=== PATIENT | female | born 1965 | race Caucasian/White ===

== ENCOUNTER 2017-10-03 12:40 | Observation (INO) | payer OTHER ==
[~2017-10-03] VITALS: Ht 170.2 cm; Wt 72.6 kg
[~2017-10-03 12:40] MED LIST: AMOXICILLIN500 MG PO
[2017-10-03 12:42] VITALS: Ht 170.2 cm; Wt 72.6 kg
[2017-10-03 14:59] LABS: BASOPHIL % 0.5 % (0-2); CALCIUM 8.8 mg/dL (8.5-10.1); CARBON DIOXIDE 27.5 mmol/L (21-32); CHLORIDE SERUM 101 mmol/L (98-107); CREATININE SERUM 0.8 mg/dL (0.6-1.0); GFR1 > 60 mL/min; GLUCOSE SERUM 89 mg/dL (74-106); PLATELET COUNT 280 x10^3mcL (130-400); POTASSIUM SERUM 4.5 mmol/L (3.5-5.1); RED CELL DISTRIBUTION WIDTH 13.5 % (11.5-14.5); SODIUM SERUM 137 mmol/L (136-145)
[2017-10-03 15:04] LABS: ALBUMIN 3.8 g/dL (3.4-5.0); ALKALINE PHOSPHATASE 25 U/L (46-116); ALT/SGPT 34 U/L (14-59); AST/SGOT 15 U/L (15-37); BILIRUBIN TOTAL 0.2 mg/dL (0.20-1.00); TOTAL PROTEIN, SERUM 7.2 g/dL (6.4-8.2); TRIGLYCERIDES 60 mg/dL (<150)
[2017-10-03 15:06] LABS: CHOLESTEROL 205 mg/dL (<200); CHOLESTEROL/HDL RATIO 2.7; HDL CHOLESTEROL 77 mg/dL (40-60)
[2017-10-03] MEDS ORDERED: LOSARTAN POTASS25 M1 (17:14)
[2017-10-03 17:30] LABS: PHOSPHOROUS 4.3 mg/dL (2.5-4.9)
[2017-10-03 17:41] LABS: T3 TOTAL 0.94 ng/mL
[2017-10-03 17:42] LABS: FREE T4 0.89 ng/dL (0.76-1.46); FREE THYROXINE INDEX 2.7 ug/dL (1.4-4.5); T4(THYROXINE) 7.6 ug/dL (4.7-13.3)
[2017-10-03 17:46] VITALS: BP 131/77
[2017-10-03] MEDS ORDERED: METHYLPREDNISOLO4 MG GT (19:31)
[2017-10-03 20:39] LABS: microscopic required? NO
[2017-10-03 21:14] LABS: urine erythrocyte NEGATIVE (NEGATIVE)
[2017-10-03 21:18] VITALS: BP 106/70
[2017-10-03 21:23] LABS: AMPHETAMINE QUAL UR NONE DETECTED (NEG <=1000)
[2017-10-04 06:39] LABS: BASOPHIL % 0.9 % (0-2); PLATELET COUNT 268 x10^3mcL (130-400); RED CELL DISTRIBUTION WIDTH 13.5 % (11.5-14.5)
[2017-10-04 06:53] VITALS: BP 96/63
[2017-10-04 08:04] LABS: CALCIUM 8.2 mg/dL (8.5-10.1); CARBON DIOXIDE 20.9 mmol/L (21-32); CHLORIDE SERUM 107 mmol/L (98-107); CREATININE SERUM 0.5 mg/dL (0.6-1.0); GFR1 > 60 mL/min; GLUCOSE SERUM 85 mg/dL (74-106); POTASSIUM SERUM 4.3 mmol/L (3.5-5.1); SODIUM SERUM 141 mmol/L (136-145)
[2017-10-04 09:05] VITALS: BP 90/54
[2017-10-04] MEDS ORDERED: GOOD SENSE OMEP20 MG PO ×2 (09:45→10:45)
[2017-10-04 10:24] VITALS: BP 96/64
[2017-10-04 11:18] VITALS: BP 96/64
[2017-10-04 13:55] VITALS: BP 110/60
== END 2017-10-04 14:22 | disposition home or self-care (01) | DRG 391 ==
LOC: ED 12:40 → DU 16:40
PROVIDERS: Emergency Medicine; Family Medicine
DX: K21.9 Gastro-esophageal reflux disease without esophagitis (principal); N17.0 Acute kidney failure with tubular necrosis; J32.9 Chronic sinusitis, unspecified; I10 Essential (primary) hypertension; E78.5 Hyperlipidemia, unspecified; Z68.25 Body mass index [BMI] 25.0-25.9, adult; Z87.891 Personal history of nicotine dependence
CPT/HCPCS: 83880; 84439; G0378; G0480; J7030; Q0092